=== PATIENT | male | born 1980 | race African-American/Black ===

== ENCOUNTER 2020-03-11 19:05 | Emergency (ER) | payer OTHER, SELFPAY ==
[~2020-03-11] VITALS: Ht 175.3 cm; Wt 45.5 kg
[2020-03-11 20:58] VITALS: BP 130/82
== END 2020-03-11 21:25 ==
LOC: EMS 19:07
DX: Z02.89 Encounter for other administrative examinations (principal); Z48.00 Encounter for change or removal of nonsurgical wound dressing; F17.210 Nicotine dependence, cigarettes, uncomplicated